=== PATIENT | male | born 1995 | race Caucasian/White ===

== ENCOUNTER 2016-06-21 13:05 | Emergency (ER) | payer BC ==
--- NOTE | 2016-06-21 13:39 | ED ---
Lower Extremity - HPI Summary HPI Summary: Pt here w/ Rt knee pain, swelling s/p hyperextension injury last night while playing basketball. H/o injury here before - pt does not recall what type of injury - no previous surgery. Denies numbness, tingling, weakness. He's able to ambulate. No other areas of pain at this time. - History of Current Complaint Chief Complaint: EDExtremityLower Stated Complaint: RIGHT KNEE PAIN Time Seen by Provider: 06/21/16 13:37 Hx Obtained From: Patient Pain Intensity: 7 - Allergies/Home Medications Allergies/Adverse Reactions: Allergies Allergy/AdvReac Type Severity Reaction Status Date / Time No Known Allergies Allergy Verified 06/21/16 13:14 PMH/Surg Hx/FS Hx/Imm Hx Previously Healthy: Yes Endocrine/Hematology History: Denies: Hx Anticoagulant Therapy, Hx Blood Disorders Musculoskeletal History: Reports: Other Musculoskeletal History - Rt knee injury - Surgical History Surgery Procedure, Year, and Place: wrist surgery after breaking it - 1999 - scalp surgery (cauterized bleeding) Infectious Disease History: No Infectious Disease History: Denies: Traveled Outside the [place] in Last 30 Days - Social History Alcohol Use: Occasionally Substance Use Type: Reports: None Type: Cigarettes Amount Used/How Often: 1-2/MONTH Have You Smoked in the Last Year: No Review of Systems Negative: Fatigue Negative: Chest Pain Negative: Shortness Of Breath Negative: Vomiting, Nausea Positive: no symptoms reported Musculoskeletal: Other - see HPI Negative: Bruising Negative: Weakness, Paresthesia, Numbness Psychological: Normal All Other Systems Reviewed And Are Negative: Yes Physical Exam Triage Information Reviewed: Yes Vital Signs On Initial Exam: Initial Vitals Temp Pulse Resp BP Pulse Ox 98.4 F 65 16 156/84 100 06/21/16 13:14 06/21/16 13:14 06/21/16 13:14 06/21/16 13:14 06/21/16 13:14 Vital Signs Reviewed: Yes Appearance: Positive: Well-Appearing, No Pain Distress, Well-Nourished Skin: Positive: Warm, Dry - no erythema, no ecchymosis over affected area Head/Face: Positive: Normal Head/Face Inspection Eyes: Positive: Normal, EOMI ENT: Positive: Hearing grossly normal, Pharynx normal Respiratory/Lung Sounds: Positive: Breath Sounds Present Cardiovascular: Positive: Normal, Pulses are Symmetrical in both Upper and Lower Extremities Musculoskeletal: Positive: Limited @ - end flexion is painful, Other - edema over Rt anterior knee upon observation - patella is poorly demarcated; difficult to asses ant/post drawer as pt is gaurding and not flexion well; neg tung's; + valgus stress, lateral joint line TTP; neg Elieser; poplitea fossa NTTP; hip and ankle are intact and NTTP Neurological: Positive: Normal, Sensory/Motor Intact, Alert, Oriented to Person Place, Time, CN Intact II-III, Reflexes Intact Psychiatric: Positive: Normal Diagnostics - Vital Signs Vital Signs Temp Pulse Resp BP Pulse Ox 06/21/16 13:14 98.4 F 65 16 156/84 100 - Laboratory Lab Statement: Any lab studies that have been ordered have been reviewed, and results considered in the medical decision making process. Lower Extremity Course/Dx - Course Course Of Treatment: Difficult to ID injured anatomy within knee as pt is quite swollen and pos findings do not sync up with dx. Suspect ligament strain d/t mechanism and gross swelling - recommend immobilizer and crutches for weight bearing as tolerated and f/u w/ ortho. - Diagnoses Provider Diagnoses: Right knee sprain Discharge - Discharge Plan Condition: Stable Disposition: HOME Patient Education Materials: Knee Sprain (ED), Crutch Instructions (ED), Knee Immobilizer (ED) Forms: *Work Release Referrals: Derick Tran MD [Medical Doctor] - Additional Instructions: Rest, ice, elevate, ibuprofen 600mg every 6 hours with food as needed for pain Use crutches to avoid weight bearing Wear knee immobilizer to prevent worsening of injury and provide support Follow-up with orthopedics in 1-2 weeks. Call today to schedule an appointment. Contact information provided below.
--- NOTE | 2016-06-21 14:38 | RAD ---
Indication: Right knee injury 4 views of the right knee demonstrates no fracture. There appears to be a suprapatellar effusion noted. 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 IMPRESSION: No fracture is noted although a suprapatellar effusion is present. 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
[2016-06-21 16:41] VITALS: BP 134/99
== END 2016-06-21 16:39 | disposition home or self-care (01) ==
LOC: ED 13:05
DX: S83.91XA Sprain of unspecified site of right knee, initial encounter (principal); M25.561 Pain in right knee; X50.9XXA Other and unspecified overexertion or strenuous movements or postures, initial encounter; Y93.89 Activity, other specified; Y92.9 Unspecified place or not applicable; R60.0 Localized edema
CPT/HCPCS: 99282